=== PATIENT | female | born 1950 | race Caucasian/White ===

== ENCOUNTER → 2017-09-27 | Outpatient (CLI) | payer MEDICARE, OTHER ==
--- NOTE | 2017-09-27 14:59 | RAD ---
DATE: 09/27/2017 EXAM: MAMMO ROSEMARIE SCREENING BILATERAL HISTORY: Routine screening COMPARISON: 01/08/2015 This study was interpreted with the benefit of Computerized Aided Detection (CAD). The breast parenchyma is heterogeneously dense, which could reduce sensitivity of mammography. Breast parenchyma level C. FINDINGS: 2-D and 3-D tomosynthesis imaging was performed in CC and MLO projections. There is a 2.2 cm nodule in the posterolateral aspect of the left breast as best seen on oblique rosemarie image 14. This density has been present on multiple previous studies including an exam from 01/08/2015 and appears unchanged. Its stability suggests a benign appearance such as a fibroadenoma or cyst. No new or enlarging breast densities are seen. Benign type calcifications present. No suspicious microcalcifications have developed. IMPRESSION: 1. Unchanged left lateral breast nodule. 2. No mammographic evidence of malignancy in either breast. BI-RADS CATEGORY: 2 BENIGN FINDING(S) RECOMMENDED FOLLOW-UP: 12M 12 MONTH FOLLOW-UP PQRS compliance statement: Patient information was entered into a reminder system with a target due date for the next mammogram. Mammography is a sensitive method for finding small breast cancers, but it does not detect them all and is not a substitute for careful clinical examination. A negative mammogram does not negate a clinically suspicious finding and should not result in delay in biopsying a clinically suspicious abnormality. "Our facility is accredited by the [employer] Mammography Program."
== END | disposition home or self-care (01) ==
LOC: MAMMO 10:42
PROVIDERS: ATTEND Family Medicine
DX: Z12.31 Encounter for screening mammogram for malignant neoplasm of breast (principal); N63.20 Unspecified lump in the left breast, unspecified quadrant
CPT/HCPCS: 77063; 77067